=== PATIENT | female | born 1960 | race Caucasian/White ===

== ENCOUNTER → 2016-12-07 | Outpatient (CLI) | payer OTHER ==
[~2016-12-07] MED LIST: ADVIL COLD & S1 EAC1 PO; ARIMIDEX PO; FLONASE 0.05%50 MCG NASAL; FORTEO750 MCG/3 SUBQ; NABUMETONE 750750 M1 PO; SINUS & ALLERG1 EAC1 PO
== END ==
LOC: NUC 10:11
DX: M81.0 Age-related osteoporosis without current pathological fracture (principal); N95.9 Unspecified menopausal and perimenopausal disorder

== ENCOUNTER → 2018-08-29 | Outpatient (CLI) | payer BC | LOC: RAD 07:53 | DX: Z12.31 Encounter for screening mammogram for malignant neoplasm of breast (principal) ==

== ENCOUNTER → 2019-09-16 | Outpatient (CLI) | payer BC | LOC: BC 08:18 | DX: Z12.31 Encounter for screening mammogram for malignant neoplasm of breast (principal) ==

== ENCOUNTER → 2020-09-16 | Outpatient (CLI) | payer BC | LOC: RAD 07:48 | PROVIDERS: ATTEND Family Medicine | DX: Z12.31 Encounter for screening mammogram for malignant neoplasm of breast (principal) ==

== ENCOUNTER → 2021-06-03 | Outpatient (CLI) | payer BC | LOC: NUC 09:03 | PROVIDERS: ATTEND Family Medicine | DX: M81.0 Age-related osteoporosis without current pathological fracture (principal); Z78.0 Asymptomatic menopausal state ==

== ENCOUNTER → 2021-09-08 | Outpatient (CLI) | payer BC | LOC: BC 08:38 | PROVIDERS: ATTEND Family Medicine | DX: Z12.31 Encounter for screening mammogram for malignant neoplasm of breast (principal); N64.89 Other specified disorders of breast ==